=== PATIENT | female | born 1975 | race Caucasian/White ===

== ENCOUNTER 2023-12-02 03:30 | Emergency (ER) | payer MEDICAID ==
[~2023-12-02] VITALS: Ht 160 cm; Wt 50.0 kg
[2023-12-02 03:33] VITALS: TEMP 97.5
--- NOTE | 2023-12-02 03:40 | NUR ---
pt stepped out to check on her dogs in the car.
--- NOTE | 2023-12-02 05:25 | NUR ---
moved pt from er 17 to er 08
--- NOTE | 2023-12-02 05:55 | NUR ---
moved pt from rm 8 to rm 11
[2023-12-02 07:11] VITALS: BP 94/62; PULSE 74; RESP 18; O2SAT 98
== END 2023-12-02 07:12 | disposition home or self-care (01) ==
LOC: ER 03:30
DX: Z02.89 Encounter for other administrative examinations (principal)
CPT/HCPCS: 99281

== ENCOUNTER 2024-04-21 04:27 | Emergency (ER) | payer MEDICAID ==
[~2024-04-21] VITALS: Ht 160 cm; Wt 49.0 kg
[2024-04-21 04:36] VITALS: BP 120/59; PULSE 91; RESP 16; TEMP 98.1; O2SAT 97
== END 2024-04-21 07:39 | disposition left against medical advice (07) ==
LOC: ER 04:27
DX: Z53.21 Procedure and treatment not carried out due to patient leaving prior to being seen by health care provider (principal)

== ENCOUNTER 2024-08-05 19:21 | Emergency (ER) | payer MEDICAID ==
[~2024-08-05] VITALS: Ht 160 cm; Wt 54.5 kg
[2024-08-05 19:29] VITALS: BP 152/81; PULSE 121; RESP 16; TEMP 97.3; O2SAT 98
--- NOTE | 2024-08-05 20:32 | Physician Documentation ---
History of Present Illness ~ General Chief Complaint: Multiple Medical Complaints Stated Complaint: MEDICATION REQUEST SUBOXANE Time Seen by MD: 19:46 History of Present Illness Initial Comments Patient is seen today with complaints of fentanyl withdrawal/opiate withdrawal. 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 Patient denies any chest pain or shortness of breath or abdominal pain. Patient has no new or other concern or complaint at this time. Patient states her cravings for opiates is very high currently. Patient denies any full-time employment. Medication Reconciliation Allergies: Coded Allergies: No Known Allergies (Unverified , 08/05/24) Past Medical History Past Medical History: No Pertinent History Past Surgical History: no surgical history Alcohol Use: None Drug Use: methamphetamine, other Review of Systems Constitutional: Denies: chills, fever, weakness Eyes: Denies: pain, blurred vision ENT: Denies: ear pain, nose pain, throat pain, mouth pain Respiratory: Denies: cough, shortness of breath Cardiovascular: Denies: chest pain, palpitations Gastrointestinal: Denies: abdominal pain, nausea, vomiting Genitourinary: Denies: burning, dysuria Female Genitalia: Denies: vaginal discharge, pelvic pain Neurological: Denies: headache, dizziness Musculoskeletal: Denies: pain, swelling Integumentary: Denies: rash, lesions Allergic/Immunologic: Denies: hives, itching Hematologic/Lymphatic: Denies: no symptoms reported Psychiatric: Denies: depression, anxiety Physical Exam Physical Exam Vital Signs: Temperature: 97.3, Source: Temporal, Heart Rate: 121, Respiratory Rate: 16, BP: 152/81, Pulse Oximetry: 98, Weight: 54.550 Physical Exam General: Awake and Alert, no acute distress. HEENT: Conjunctiva pink, Sclera clear, Mucus Membranes moist. Neck: Supple without masses and tenderness. Resp: Unlabored. Lungs clear to auscultation bilaterally. Heart: Regular Rate and rhythm, normal S1 and S2 without murmur, rub or gallop. Abdomen: Soft and non tender no organomegaly Extremities: No cyanosis,clubbing or edema. Skin: Warm and Dry. Progress Results/Orders Results/Orders Vital Signs 08/05/24 19:29 Temp 97.3 Pulse 121 Resp 16 B/P (MAP) 152/81 Pulse Ox 98 Medical Decision Making Findings Patient is seen today with complaints of fentanyl withdrawal/opiate withdrawal. 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 Patient denies any chest pain or shortness of breath or abdominal pain. Patient has no new or other concern or complaint at this time. Patient states her cravings for opiates is very high currently. Patient denies any full-time employment. Patient was given dose of Suboxone 8/2 mg films, one film sublingual in the ED tonight. Prescription for Suboxone 8/2 mg films, one film sublingual twice a day sent to patient pharmacy enough for two weeks. Patient will follow up with [facility] or her primary care for continued prescription of Suboxone. Patient will return to ED with any worsening, concerning or changing symptoms. Departure Disposition: 01 HOME / SELF CARE / HOMELESS Impression: Primary Impression: Opiate withdrawal Additional Impression: Opioid dependence, uncomplicated Condition: Improved Discharge Instructions: Opioid Use Disorder Additional Instructions: Patient was given dose of Suboxone 8/2 mg films, one film sublingual in the ED tonight. Prescription for Suboxone 8/2 mg films, one film sublingual twice a day sent to patient pharmacy enough for two weeks. Patient will follow up with [facility] or her primary care for continued prescription of Suboxone. Patient will return to ED with any worsening, concerning or changing symptoms. Referrals: NO PRIMARY CARE PROVIDER (PCP) Prescriptions Buprenorphine Hcl/Naloxone Hcl (Suboxone 8 Mg-2 Mg Sl Film) 8 Mg-2 Mg Film 1 STRIP SL BID for opiate withdrawal for 15 Days, #30 STRIP Prov: CHYNA FIGUEROA 08/05/24 Signature Scribe Signature: No scribe Attestation: No scribe CHYNA FIGUEROA August 05, 2024 20:32
[2024-08-05] MEDS ORDERED: BUPR1FIL3 SL (20:34)
[2024-08-05] MEDS: buprenorphine/naloxone 8MG-2MG SUBlingual film SL STA (21:17)
== END 2024-08-05 21:22 | disposition home or self-care (01) ==
LOC: ER 19:22
DX: F11.23 Opioid dependence with withdrawal (principal); F15.90 Other stimulant use, unspecified, uncomplicated
CPT/HCPCS: 99283